=== PATIENT | male | born 1985 | race Asian ===

== ENCOUNTER → 2019-04-21 04:39 | Emergency (ER) | payer SELFPAY ==
[~2019-04-21] VITALS: Ht 167.6 cm; Wt 83.9 kg
[~2019-04-21 04:39] MED LIST: IBUPROFEN 800 MG TAB PO ONE
[2019-04-21 06:25] VITALS: BP 132/86
== END | disposition home or self-care (01) ==
LOC: ER 04:39
DX: S62.144A Nondisplaced fracture of body of hamate [unciform] bone, right wrist, initial encounter for closed fracture (principal); Z53.29 Procedure and treatment not carried out because of patient's decision for other reasons; W22.01XA Walked into wall, initial encounter; Y93.89 Activity, other specified; Y99.8 Other external cause status; Y92.89 Other specified places as the place of occurrence of the external cause
CPT/HCPCS: 73130

== ENCOUNTER 2019-05-03 23:07 | Emergency (ER) | payer SELFPAY ==
[~2019-05-03] VITALS: Ht 170.2 cm; Wt 86.2 kg
[2019-05-04 03:08] VITALS: BP 138/81
== END 2019-05-04 04:31 | disposition home or self-care (01) ==
LOC: ER 23:09
DX: S62.141A Displaced fracture of body of hamate [unciform] bone, right wrist, initial encounter for closed fracture (principal); X58.XXXA Exposure to other specified factors, initial encounter; Y93.89 Activity, other specified; Y99.8 Other external cause status; Y92.89 Other specified places as the place of occurrence of the external cause
CPT/HCPCS: 73120

== ENCOUNTER 2019-05-11 08:19 | Emergency (ER) | payer MEDICAID, OTHER ==
[~2019-05-11] VITALS: Ht 170.2 cm; Wt 86.2 kg
[2019-05-11 08:42] VITALS: BP 119/71
== END 2019-05-11 11:22 | disposition home or self-care (01) ==
LOC: ER 08:19
DX: S62.141A Displaced fracture of body of hamate [unciform] bone, right wrist, initial encounter for closed fracture (principal); S63.266A Dislocation of metacarpophalangeal joint of right little finger, initial encounter; S63.264A Dislocation of metacarpophalangeal joint of right ring finger, initial encounter; X58.XXXA Exposure to other specified factors, initial encounter; Y93.89 Activity, other specified; Y92.89 Other specified places as the place of occurrence of the external cause; Y99.8 Other external cause status
CPT/HCPCS: 29125; 73130; 73200